=== PATIENT | female | born 1970 | race Caucasian/White ===

== ENCOUNTER → 2017-03-17 | Outpatient (CLI) | payer SELFPAY ==
[~2017-03-17] MED LIST: BACDS; CEP500 PO; CEPH500T7 PO; CLIN300C99 PO; DUL30 PO; ESC10 PO; ESCI20TA38 PO; HYDR-3250 PO; IBU800 PO; ONDA4TAB97 PO; OXYC-865 PO; PER PO; TOBOD OD; VENL150C61 PO; VENL25TA29 PO; VENL75CA58 PO
== END ==
LOC: LAB 13:33
PROVIDERS: ATTEND Nurse Practitioner Family
DX: D64.9 Anemia, unspecified (principal); R53.83 Other fatigue
CPT/HCPCS: 36415; 82728; 83540

== ENCOUNTER → 2017-03-30 | Outpatient (CLI) | payer SELFPAY ==
[2017-03-30 14:06] LABS: PLATELET COUNT, AUTOMATED 284 K/uL (150-450)
== END ==
LOC: LAB 13:47
PROVIDERS: ATTEND Nurse Practitioner Family
DX: D64.9 Anemia, unspecified (principal)
CPT/HCPCS: 36415; 83540; 83550; 85025

== ENCOUNTER 2017-08-08 06:32 | Emergency (ER) | payer BC ==
[2017-08-08] MEDS ORDERED: IV BOLUS 500 ML IVSOL IV ONE (06:45)
--- NOTE | 2017-08-08 06:46 | ER Report ---
History and Physical Time Seen By MD: 06:40 Hx. of Stated Complaint: patient reports cold and flu like symptoms for the last week. she is reporting body aches HPI/ROS CHIEF COMPLAINT: Gen. malaise HISTORY OF PRESENT ILLNESS: 46-year-old female pack-a-day smoker for the last 25 years comes emergency Department today with complaint of an influenza-like symptoms general fatigue malaise subjective fevers chills no cough nausea vomiting or diarrhea associated feels dehydrated with a dry mouth denies any chest pain abdominal pain since she has had a peferated bowel on the last 12 months which was surgically corrected patient denies any diarrhea patient has no other cardiac history noted patient has no additional complaints this time however on arrival she was noted at 82% with a good waveform on the pulse oximetry monitor REVIEW OF SYSTEMS: Respiratory: No cough, no dyspnea. Cardiovascular: No chest pain, no palpitations. Gastrointestinal: No vomiting, no abdominal pain. Musculoskeletal: No back pain. Remainder of the 14 system rev: Yes Allergies: Coded Allergies: No Known Allergies (Verified Allergy, Mild, 02/01/17) Home Meds Reported Medications Venlafaxine Hcl (EFFEXOR XR) 150 Mg Cap.er.24h, 150 MG PO QDAY 02/01/17 Discontinued Reported Medications Venlafaxine Hcl (EFFEXOR XR) 75 Mg Cap.er.24h, 75 MG PO QDAY 02/01/17 Discontinued Scripts Ondansetron Hcl (ZOFRAN) 4 Mg Tablet, 4 MG PO Q6H Y for NAUSEA/VOMITING, #10 Prov:YASMINE DE LA PAZ DO 02/01/17 Oxycodone Hcl/Acetaminophen (PERCOCET 5-325 MG TABLET) 1 Each Tablet, 1 EACH PO Q4H Y for PAIN, #12 Prov:YASMINE DE LA PAZ DO 02/01/17 Cephalexin 500 Mg Tab (KEFLEX 500 MG TAB) 500 Mg Tablet, 500 MG PO TID for infection, #20 TAB Prov:YASMINE DE LA PAZ DO 02/01/17 Reviewed Nurses Notes: Yes Old Medical Records Reviewed: Yes Hx Smoking: Yes (1/2 PPD) Smoking Status: Current: Every Day Smoker Hx Substance Use Disorder: No Hx Alcohol Use: No Constitutional Vital Sign - Last 24 Hours 08/08/17 08/08/17 08/08/17 08/08/17 06:40 06:40 06:40 06:43 Temp 98.7 Pulse 107 Resp 20 B/P (MAP) 130/99 (109) 130/99 121/88 (99) Pulse Ox 82 O2 Flow Rate 2.0 08/08/17 08/08/17 07:02 07:24 Pulse 86 B/P (MAP) 119/87 (98) Pulse Ox 94 Physical Exam General Appearance: The patient is alert, has no immediate need for airway protection and no current signs of toxicity. [ ] Eyes: Pupils equal and round no injection. Respiratory: Chest is non tender, lungs are clear to auscultation. Cardiac: regular rate and rhythm [ ] Gastrointestinal: Abdomen is soft and non tender, no masses, bowel sounds normal. Musculoskeletal: Neck: Neck is supple and non tender. Extremities have full range of motion and are non tender. Skin: No rashes or lesions. [ ] DIFFERENTIAL DIAGNOSIS: After history and physical exam differential diagnosis was considered for pneumonia bronchitis pulmonary emboli cardiac ischemia influenza viral infection Medical Decision Making Data Points Result Diagram: 08/08/17 0705 08/08/17 0705 Laboratory Hematology Test 08/08/17 06:48 08/08/17 07:05 08/08/17 07:10 Influenza Virus Type A (PCR) Negative (NEGATIVE) Influenza Virus Type B (PCR) Negative (NEGATIVE) Red Blood Count 5.19 M/uL (4.17-5.56) Mean Corpuscular Volume 85.5 fL (80.0-96.0) Mean Corpuscular Hemoglobin 28.9 pg (26.0-33.0) Mean Corpuscular Hemoglobin Concent 33.8 g/dL (32.0-36.0) Red Cell Distribution Width 15.6 % (11.5-14.5) Mean Platelet Volume 7.9 fL (7.2-11.1) Neutrophils (%) (Auto) 71.0 % (39.4-72.5) Lymphocytes (%) (Auto) 19.1 % (17.6-49.6) Monocytes (%) (Auto) 8.9 % (4.1-12.4) Eosinophils (%) (Auto) 0.4 % (0.4-6.7) Basophils (%) (Auto) 0.6 % (0.3-1.4) Nucleated RBC Relative Count (auto) 0.0 /100WBC Neutrophils # (Auto) 8.6 K/uL (2.0-7.4) Lymphocytes # (Auto) 2.3 K/uL (1.3-3.6) Monocytes # (Auto) 1.1 K/uL (0.3-1.0) Eosinophils # (Auto) 0.1 K/uL (0.0-0.5) Basophils # (Auto) 0.1 K/uL (0.0-0.1) Nucleated RBC Absolute Count (auto) 0.01 K/uL D-Dimer Quantitative (PE/DVT) < 0.27 ug/ml (0-0.50) Sodium Level 137 mmol/L (137-145) Potassium Level 4.1 mmol/L (3.5-5.0) Chloride Level 98 mmol/L (98-107) Carbon Dioxide Level 28 mmol/L (22-31) Blood Urea Nitrogen 16 mg/dl (7-18) Creatinine 1.00 mg/dl (0.52-1.04) Glomerular Filtration Rate Calc 60.0 Random Glucose 114 mg/dl (75-110) Calcium Level 9.5 mg/dl (8.4-10.2) Total Bilirubin 0.6 mg/dl (0.2-1.3) Aspartate Amino Transf (AST/SGOT) 15 U/L (0-35) Alanine Aminotransferase (ALT/SGPT) 23 U/L (0-56) Alkaline Phosphatase 66 U/L (0-126) Troponin I < 0.012 ng/ml B-Type Natriuretic Peptide 45 pg/ml (0-100) Total Protein 7.9 gm/dl (6.3-8.2) Albumin 3.7 g/dl (3.5-5.0) Blood Gas Puncture Site Right radial Blood Gas Patient Temperature 97.8 DEGREES Arterial Blood pH 7.41 (7.35-7.45) Arterial Blood Partial Pressure CO2 44 mmHg (32-37) Arterial Blood Partial Pressure O2 65 mmHg (60-80) Arterial Blood HCO3 28 mmol/L (20-26) Arterial Blood Oxygen Saturation 92 % (92-100) Arterial Blood Base Excess 3.0 mmol/L Eddie Test Acceptable Oxygen Liters/Minute 2l Chemistry Test 08/08/17 06:48 08/08/17 07:05 08/08/17 07:10 Influenza Virus Type A (PCR) Negative (NEGATIVE) Influenza Virus Type B (PCR) Negative (NEGATIVE) White Blood Count 12.1 k/uL (4.5-11.0) Red Blood Count 5.19 M/uL (4.17-5.56) Hemoglobin 15.0 g/dL (12.0-16.0) Hematocrit 44.4 % (34.0-47.0) Mean Corpuscular Volume 85.5 fL (80.0-96.0) Mean Corpuscular Hemoglobin 28.9 pg (26.0-33.0) Mean Corpuscular Hemoglobin Concent 33.8 g/dL (32.0-36.0) Red Cell Distribution Width 15.6 % (11.5-14.5) Platelet Count 226 K/uL (150-450) Mean Platelet Volume 7.9 fL (7.2-11.1) Neutrophils (%) (Auto) 71.0 % (39.4-72.5) Lymphocytes (%) (Auto) 19.1 % (17.6-49.6) Monocytes (%) (Auto) 8.9 % (4.1-12.4) Eosinophils (%) (Auto) 0.4 % (0.4-6.7) Basophils (%) (Auto) 0.6 % (0.3-1.4) Nucleated RBC Relative Count (auto) 0.0 /100WBC Neutrophils # (Auto) 8.6 K/uL (2.0-7.4) Lymphocytes # (Auto) 2.3 K/uL (1.3-3.6) Monocytes # (Auto) 1.1 K/uL (0.3-1.0) Eosinophils # (Auto) 0.1 K/uL (0.0-0.5) Basophils # (Auto) 0.1 K/uL (0.0-0.1) Nucleated RBC Absolute Count (auto) 0.01 K/uL D-Dimer Quantitative (PE/DVT) < 0.27 ug/ml (0-0.50) Glomerular Filtration Rate Calc 60.0 Calcium Level 9.5 mg/dl (8.4-10.2) Total Bilirubin 0.6 mg/dl (0.2-1.3) Aspartate Amino Transf (AST/SGOT) 15 U/L (0-35) Alanine Aminotransferase (ALT/SGPT) 23 U/L (0-56) Alkaline Phosphatase 66 U/L (0-126) Troponin I < 0.012 ng/ml B-Type Natriuretic Peptide 45 pg/ml (0-100) Total Protein 7.9 gm/dl (6.3-8.2) Albumin 3.7 g/dl (3.5-5.0) Blood Gas Puncture Site Right radial Blood Gas Patient Temperature 97.8 DEGREES Arterial Blood pH 7.41 (7.35-7.45) Arterial Blood Partial Pressure CO2 44 mmHg (32-37) Arterial Blood Partial Pressure O2 65 mmHg (60-80) Arterial Blood HCO3 28 mmol/L (20-26) Arterial Blood Oxygen Saturation 92 % (92-100) Arterial Blood Base Excess 3.0 mmol/L Eddie Test Acceptable Oxygen Liters/Minute 2l Coagulation Test 08/08/17 07:05 D-Dimer Quantitative (PE/DVT) < 0.27 ug/ml ED Course/Re-evaluation ED Course ED clinical and making this is a 46-year-old female comes in with flulike symptoms comprehensive workup was performed including cardiac markers d-dimer BNP troponins EKG all of which were negative including chest x-ray she had a pulse oximetry low in the mid 80s responded nicely to subfrontal O2 she is a long-term smoker ABG showed a PO2 of 65 with a saturation of 92% patient will be advised to discontinue smoking will follow up with primary care patient was afebrile with normal vitals otherwise unremarkable examination patient be discharge diagnoses viral upper respiratory and hypoxia Decision to Disposition Date: August 08, 2017 Decision to Disposition Time: 07:52 Depart Departure Latest Vital Signs Vital Signs Date Time Temp Pulse Resp B/P (MAP) Pulse Ox O2 Delivery O2 Flow Rate FiO2 08/08/17 07:24 119/87 (98) 08/08/17 07:02 86 94 08/08/17 06:40 2.0 08/08/17 06:40 98.7 20 Impression: Primary Impression: Viral upper respiratory illness Additional Impression: Hypoxia Condition: Improved Disposition: HOME OR SELF-CARE Referrals: AYSHA MARTINES (PCP) 5 Days Patient Instructions: Hypoxia (ED) Problem Qualifiers UCHE CALDERON MD August 08, 2017 06:46
[2017-08-08] MEDS ORDERED: NS(*) 0.9% 1000 ML BAG 1,000 ML IV ONE (06:50)
--- NOTE | 2017-08-08 06:53 | EKG ---
FACILITY: [facility] PATIENT NAME: BENITO HESS : [id number] MR: [id number] V: [id number] EXAM DATE: ORDERING PHYSICIAN: UCHE CALDERON TECHNOLOGIST: NATALIE Lawrence Reason : COLD SYMPTOMS Blood Pressure : / mmHG Vent. Rate : 085 BPM Atrial Rate : 085 BPM P-R Int : 120 ms QRS Dur : 120 ms QT Int : 386 ms P-R-T Axes : 067 218 -05 degrees QTc Int : 459 ms Sinus rhythm Right bundle branch block Abnormal ECG Confirmed by HERLINDA NERI ([id number] on 08/08/2017 9:03:36 PM Referred By: Confirmed By:HERLINDA NERI
[2017-08-08 07:18] LABS: PLATELET COUNT, AUTOMATED 226 K/uL (150-450)
--- NOTE | 2017-08-08 07:48 | RADIOLOGY IMAGING REPORT ---
FACILITY: [facility] PATIENT NAME: Juliana Soni : 1970 MR: [id number] V: [id number] EXAM DATE: ORDERING PHYSICIAN: UCHE CALDERON TECHNOLOGIST: Location: [facility] [place] Patient: Juliana Soni : 1970 Visit/Account:[id number] Date of Sevice: 08/08/2017 CHEST PA AND LAT Additional pertinent History: Flulike symptoms. No chest pain COMPARISON STUDIES: 03/13/2017 FINDINGS: Support lines and catheters: None Lungs and Pleura: No infiltrates or consolidations. No effusions Heart and vasculature: Negative. Laureen and Mediastinum: Negative. Bones and Chest wall: Negative. Upper Abdomen: Negative chest IMPRESSION: 1. Negative chest for acute cardiopulmonary disease. Clearing of what had been small bilateral effusi ons and right lower lung atelectasis when compared to previous study Report Dictated By: Aba Gabriel MD at 08/08/2017 7:42 AM Report E-Signed By: Aba Gabriel MD at 08/08/2017 7:45 AM WSN:[id number]
[2017-08-08 07:54] VITALS: BP 120/83
== END 2017-08-08 08:00 | disposition home or self-care (01) ==
LOC: ER 06:41
DX: J06.9 Acute upper respiratory infection, unspecified (principal); R09.02 Hypoxemia; F17.210 Nicotine dependence, cigarettes, uncomplicated
CPT/HCPCS: 36600; 71046; 82803; 83880; 84484; 85025; 85379; 87502; 93005; 99284; J7030; 82040; 82247; 82310; 82374; 82435; 82565; 82947; 84075; 84132; 84155; 84295; 84450; 84460; 84520

== ENCOUNTER → 2017-10-29 | Outpatient (CLI) | payer BC ==
[2017-10-29 14:04] LABS: PLATELET COUNT, AUTOMATED 211 K/uL (150-450)
--- NOTE | 2017-10-29 16:28 | RADIOLOGY IMAGING REPORT ---
FACILITY: [facility] [place] PATIENT NAME: Juliana Soni : 1970 MR: [id number] V: [id number] EXAM DATE: ORDERING PHYSICIAN: JENNY MONROY TECHNOLOGIST: Location: [facility] Patient: Juliana Soni : 1970 Visit/Account:[id number] Date of Sevice: 10/29/2017 EXAMINATION: Abdominal ultrasound complete HISTORY: Right upper quadrant left upper quadrant pain since this morning, COMPARISON: CT and pelvis November 30, 2011 FINDINGS: Gallbladder: Multiple gallstones are identified within the gallbladder. Gallbladder wall does not ap pear thickened and measures 2 mm in thickness. Liver: Negative. Common duct: Normal measuring 5.4 mm. Pancreas: Negative. Spleen: Normal in size and echogenicity measuring 10.8 cm in length. Kidneys: Normal in size and echogenicity, the right measures nine cm in length, and the left 10.9 cm . No hydronephrosis. There is a suggestion of a left pleural effusion Upper abdominal aorta and IVC: Negative. Ascites: None. IMPRESSION: Cholelithiasis although no evidence of gallbladder wall thickening or biliary ductal dilatation Suggestion of a left pleural effusion Report Dictated By: Shannon Brooks MD at 10/29/2017 4:20 PM Report E-Signed By: Shannon Brooks MD at 10/29/2017 4:24 PM WSN:[email or web address]
== END ==
LOC: LAB 13:35
PROVIDERS: ATTEND Nurse Practitioner Family
DX: K80.20 Calculus of gallbladder without cholecystitis without obstruction (principal); J90 Pleural effusion, not elsewhere classified
CPT/HCPCS: 36415; 76700; 82040; 82150; 82247; 82310; 82374; 82435; 82565; 82947; 83690; 84075; 84132; 84155; 84295; 84450; 84460; 84520; 85025; 86677

== ENCOUNTER → 2017-11-07 | Outpatient (CLI) | payer BC ==
--- NOTE | 2017-11-07 13:19 | RADIOLOGY IMAGING REPORT ---
FACILITY: [facility] [place] PATIENT NAME: Juliana Soni : 1970 MR: [id number] V: [id number] EXAM DATE: ORDERING PHYSICIAN: JENNY MONROY TECHNOLOGIST: Location: [facility] [place] Patient: Juliana Soni : 1970 Visit/Account:[id number] Date of Sevice: 11/07/2017 Exam type: CHEST PA AND LAT History: Cough Comparison: Abdomen ultrasound October 29, 2017 and two-view chest August 09, 2007. An CT abdomen pelvis November 30, 2011 Findings: The lungs are free of acute effusions infiltrates or edema. There is mild elevation right hemidiaphr agm that appears chronic. There is haziness in the right cardiophrenic angle. This appears similar to the prior study and is consistent with a prominent epicardial fat pad as seen on a prior CT of abd omen pelvis from November 30, 2011. There is no evidence of acute effusions infiltrates or edema. The cardiac silhouette is normal. IMPRESSION: 1. No acute cardiac from a process is seen Report Dictated By: Shannon Brooks MD at 11/07/2017 12:51 PM Report E-Signed By: Shannon Brooks MD at 11/07/2017 1:16 PM MICHAELN:[email or web address]
== END ==
LOC: RAD 11:16
PROVIDERS: ATTEND Nurse Practitioner Family
DX: R05 Cough (principal)
CPT/HCPCS: 71046

== ENCOUNTER → 2017-12-05 | Outpatient (CLI) | payer BC ==
--- NOTE | 2017-12-05 15:43 | RADIOLOGY IMAGING REPORT ---
FACILITY: PATIENT NAME: Juliana Soni : 1970 MR: [id number] V: [id number] EXAM DATE: ORDERING PHYSICIAN: JENNY MONROY TECHNOLOGIST: Location[place] [facility] [place] Patient: uJliana Soni : 1970 Visit/Account:[id number] Date of Sevice: 12/05/2017 PELVIC HISTORY: Pelvic pain, dysfunctional uterine bleeding, mass right side TECHNIQUE: Transabdominal and transvaginal ultrasound pelvis. COMPARISON: Pelvic ultrasound May 31, 2016 CT abdomen and pelvis November 30, 2011 FINDINGS: Uterus: ; 8.1 cm length x 4.3 cm AP x 5.1 cm transverse. Myometrium: Unremarkable. Endometrium: Unremarkable; double thickness 11 mm. Cervix: Nabothian cysts. Ovaries: Right - there is a complex mass in the right adnexa which may represent the right ovary. This m easures 6.6 x 6.1 x 4.6 cm. There are multiple solid and cystic-appearing components Left - not visualized Arterial flow was demonstrated in the right ovary Adnexa: Grossly unremarkable. Free pelvic fluid: None. IMPRESSION: There is a complex mass in the right adnexa which may represent the right ovary measuring 6.6 x 6.1 x 4.6 cm. There are multiple solid and cystic components present. By history the left ovary has been surgically removed for endometriosis. The changes the right adnexa could represent endometriomas al though differential diagnosis would include tubo-ovarian abscess or ovarian neoplasm. Report Dictated By: Shannon Brooks MD at 12/05/2017 3:31 PM Report E-Signed By: Shannon Brooks MD at 12/05/2017 3:39 PM WSN:[email or web address]
== END ==
LOC: US 13:04
PROVIDERS: ATTEND Nurse Practitioner Family
DX: N83.9 Noninflammatory disorder of ovary, fallopian tube and broad ligament, unspecified (principal); Z90.721 Acquired absence of ovaries, unilateral
CPT/HCPCS: 76856

== ENCOUNTER 2018-01-05 15:15 | Emergency (ER) | payer SELFPAY ==
[~2018-01-05 15:15] MED LIST changes: +IBUP-136 PO
[2018-01-05] MEDS ORDERED: CLOT12CR4 (15:25)
--- NOTE | 2018-01-05 15:36 | ER Report ---
History and Physical Time Seen By MD: 15:36 Hx. of Stated Complaint: PT C/O ULCERATED AREA TO BUTTOCKS X 2 MONTHS, TREATING WITHOUT SUCCESS WITH LOTRIMIN AF AND "ITCHING OINTMENT." HPI/ROS CHIEF COMPLAINT: Wound to buttock HISTORY OF PRESENT ILLNESS: This is a 47-year-old female who presents to the emergency department for a wound on her buttock. Patient states over the last couple of months she's had a wound on her buttock that has been increasing in size and pain. Patient has seen her PCP, they did think it was a fungal type infection, patient was instructed to apply a fungal medication to the wound and apply occlusive dressing. Patient states that since applying the fungal cream the wound has increased in size and is very uncomfortable. No fevers or chills. No nausea or vomiting. No other complaints. REVIEW OF SYSTEMS: Respiratory: No cough, no dyspnea. Cardiovascular: No chest pain, no palpitations. Gastrointestinal: No vomiting, no abdominal pain. Musculoskeletal: No back pain. Integumentary: As above. Allergies: Coded Allergies: No Known Allergies (Verified Allergy, Mild, 02/01/17) Home Meds Active Scripts Cephalexin 500 Mg Tab (KEFLEX 500 MG TAB) 500 Mg Tablet, 500 MG PO Q6H, #28 TAB 0 Refills Prov:VIRGIE MANZO [employer] 01/05/18 Reported Medications Clotrimazole (Lotrimin AF) 1 % Cream..g. 01/05/18 Ibuprofen (IBUPROFEN) Unknown Strength Capsule, PO PRN, CAPSULE 12/31/17 Venlafaxine Hcl (EFFEXOR XR) 150 Mg Cap.er.24h, 150 MG PO QDAY 02/01/17 Past Medical/Surgical History The patient has a past medical and surgical history of left eye surgery, headaches, herniated disc, arthritis, depression, smokes. Reviewed Nurses Notes: Yes Hx Smoking: Yes (1/2 PPD) Smoking Status: Current: Every Day Smoker Hx Substance Use Disorder: No Hx Alcohol Use: No Constitutional Vital Sign - Last 24 Hours 01/05/18 01/05/18 15:26 17:37 Temp 97.9 Pulse 96 76 Resp 20 16 B/P (MAP) 122/85 122/85 (97) Pulse Ox 94 94 O2 Delivery Room Air Room Air Physical Exam General Appearance: The patient is alert, has no immediate need for airway protection and no current signs of toxicity. Eyes: Pupils equal and round no injection. Respiratory: Chest is non tender, lungs are clear to auscultation. Cardiac: regular rate and rhythm. Gastrointestinal: Abdomen is soft and non tender, no masses, bowel sounds normal. Musculoskeletal: Neck: Neck is supple and non tender. Extremities have full range of motion and are non tender. Skin: There is a palm sized excoriated area to the upper buttock primarily on the right upper buttock area around the sacrum. There is some granulation tissue to the center of the wound. There is some erythema and mild cellulitis to the surrounding tissue. DIFFERENTIAL DIAGNOSIS: After history and physical exam differential diagnosis was considered for cellulitis, fungal infection. Medical Decision Making ED Course/Re-evaluation ED Course The patient was admitted to room. A history physical obtained. Differential diagnoses were considered. After examination the patient to determine the patient has some sloughing and an excoriated area to the upper buttock, near the sacrum with the majority of the area on the right side patient had been treated I her primary care provider for a fungal infection, there is some erythema and cellulitic appearing areas to the tissue surrounding the wound, I did give the patient some topical lidocaine to the wound, with significant relief. There was a dressing applied to the wound. Patient was started on Keflex for cellulitis. The patient was also instructed to follow-up with wound care the 1st part of this next week for evaluation and wound care. The patient was also sent home with viscous lidocaine, instructed to closely monitor her wound, cleanse it gently and apply a thinly her of the viscous lidocaine as needed for discomfort. Patient was also instructed to return to the ER for any other concerns or worsening symptoms. Patient expressed understanding was discharged home. She was also sent home with a prescription for wound care. She was also instructed to follow-up with her primary care provider within one week. Decision to Disposition Date: Jan 05, 2018 Decision to Disposition Time: 16:43 Depart Departure Latest Vital Signs Vital Signs Date Time Temp Pulse Resp B/P (MAP) Pulse Ox O2 Delivery O2 Flow Rate FiO2 01/05/18 17:37 76 16 122/85 (97) 94 Room Air 01/05/18 15:26 97.9 Impression: Primary Impression: Cellulitis of buttock Condition: Improved Disposition: HOME OR SELF-CARE Referrals: AYSHA MARTINES (PCP) 1 Week New Scripts Cephalexin 500 Mg Tab (KEFLEX 500 MG TAB) 500 Mg Tablet 500 MG PO Q6H, #28 TAB 0 Refills Prov: VIRGIE MANZO-DOMINIC 01/05/18 Patient Instructions: Cellulitis (ED) Additional Instructions: I believe you have an early onset skin infection with some excoriation of the wound. I do want you to follow-up Sunday with the wound care clinic, be sure to take the prescription with you. [phone]. Take the Keflex as prescribed. You can apply a thin coating of the lidocaine to the affected area every 6-8 hours as needed for discomfort. Keep the wound covered and clean. Drink plenty of water. Get plenty of rest. Return to the emergency department for any other concerns or worsening symptoms. VIRGIE MANZO-DOMINIC Jan 05, 2018 15:36
[2018-01-05] MEDS ORDERED: LIDOCAINE 2% VISC SLN 15ML UDC PO ONE ×2 (15:45→16:45)
[2018-01-05] MEDS ORDERED: CEPH500T7 PO (16:44)
[2018-01-05 17:37] VITALS: BP 122/85
== END 2018-01-05 17:39 | disposition home or self-care (01) ==
LOC: ER 15:24
DX: L03.317 Cellulitis of buttock (principal)
CPT/HCPCS: 99283

== ENCOUNTER → 2018-09-11 | Outpatient (CLI) | payer BC ==
[~2018-09-11] MED LIST changes: +CLOT12CR4
[2018-09-11 11:09] LABS: PLATELET COUNT, AUTOMATED 224 K/uL (150-450)
== END ==
LOC: LAB 10:50
PROVIDERS: ATTEND Nurse Practitioner Family
DX: N92.0 Excessive and frequent menstruation with regular cycle (principal); D64.9 Anemia, unspecified
CPT/HCPCS: 36415; 82728; 83540; 85025

== ENCOUNTER → 2018-09-12 | Outpatient (CLI) | payer BC ==
--- NOTE | 2018-09-12 17:06 | RADIOLOGY IMAGING REPORT ---
FACILITY: [facility] PATIENT NAME: Juliana Soni : 1970 MR: [id number] V: [id number] EXAM DATE: ORDERING PHYSICIAN: JENNY MONROY TECHNOLOGIST: Location: [facility] [place] Patient: Juliana Soni : 1970 Visit/Account:[id number] Date of Sevice: 09/12/2018 TRANSVAGINAL NON-OB HISTORY: Menorrhagia, pelvic pain, positive CEA 125 TECHNIQUE: Transvaginal ultrasound pelvis. COMPARISON: December 05, 2017 FINDINGS: Uterus: ; 9.5 cm length x 0.9 cm AP x 6.6 cm transverse. Myometrium: Unremarkable. Endometrium: Unremarkable; double thickness 7.9 mm. Cervix: Nabothian cysts. Ovaries: Right - 6.4 x 5 x 6 cm. Most of the right ovary is replaced by large complex septated cystic an d solid mass. Exact measurements were not obtained. This does appear more prominent when compared t o the prior study Left - surgically absent Blood flow is documented in the right ovary by duplex Doppler ultrasound. Adnexa: As above. Free pelvic fluid: None. IMPRESSION: Right ovary is enlarged measuring 6.4 x 5 x 6 cm and is mostly replaced by a large complex septated c ystic and solid mass. This appears more prominent when compared to the prior study. Given clinical history of elevated CA-125 malignancy is of concern. 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 Report Dictated By: Shannon Brooks MD at 09/12/2018 4:56 PM Report E-Signed By: Shannon Brooks MD at 09/12/2018 5:01 PM WSN:[email or web address]
== END ==
LOC: US 00:20
PROVIDERS: ATTEND Nurse Practitioner Family
DX: N92.1 Excessive and frequent menstruation with irregular cycle (principal); R10.2 Pelvic and perineal pain
CPT/HCPCS: 76830